=== PATIENT | female | born 1955 | race Caucasian/White ===

== ENCOUNTER 2016-07-26 08:31 | Inpatient (IN) | payer BC ==
[~2016-07-26] VITALS: Ht 167.6 cm; Wt 136.5 kg
[~2016-07-26 08:31] MED LIST: FERROUS SU325 MG/TAB PO; FOLIC ACID 40400 MCG PO; HCTZ 25MG25 MG PO; HEPARIN LOCK FLU5 M1 IV; INDERAL LA 60MG60 M1 PO; LOVENOX 4040 MG/0.4 SQ; NORCO 325 MG-51 TAB PO; PRILOTC PO; VANCOCIN HCL1 GM IV; VITAMIN C BUFF500 MG PO
[2016-07-26 09:39] LABS: MEAN CELL VOLUME 89 fl (80.0-100.0); MEAN CORPUSCULAR HGB CONC 32 g/dl (33.0-37.0); MEAN PLATELET VOLUME 10.2 fl (7.4-10.4); PLATELET COUNT 334 K/mm3 (130-400); RED BLOOD COUNT 3.15 M/mm3 (4.10-5.30); REDCELL DISTRIBUTION WIDTH-CV 14.2 % (11.5-14.5)
[2016-07-26 09:46] LABS: ADD PATHOLOGY DIFF REVIEW NO; ADJUSTED CALCIUM 9.9 mg/dL (8.4-10.2); ALBUMIN 2.8 gm/dL (3.5-5.0); BILIRUBIN,TOTAL 0.8 mg/dL (0.0-1.0); CALCIUM 8.9 mg/dL (8.4-10.2); CREATININE, serum 3.52 mg/dL (0.52-1.25); HEMATOCRIT 28.1 % (37.0-47.0); MEAN CORPUSCULAR HEMOGLOBIN 29 pg (27.0-31.0); POTASSIUM 3.8 mmol/L (3.4-5.0); TOTAL PROTEIN 6.3 gm/dL (6.4-8.2); WHITE BLOOD COUNT 28.3 K/mm3 (4.8-10.8)
[2016-07-26 09:55] LABS: BAND 22 % (0-10); EOSINOPHIL 3 % (0-4); METAMYELOCYTE 1 % (0-0); NEUTROPHILS 62 % (42.0-75.2); PLATELET ESTIMATE NORMAL (NORMAL); TOTAL CELLS COUNTED 200
[2016-07-26 10:05] LABS: ERYTHROCYTE SEDIMENTATION RATE > 140 mm/hr (0-30)
[2016-07-26 10:14] LABS: C-REACTIVE PROTEIN 21.9 mg/dL (0.0-0.9)
[2016-07-26 11:54] VITALS: BP 144/69; PULSE 77; TEMP 98.1
[2016-07-26] MEDS ORDERED: LOVENOX 4040 MG/0.4 SQ (13:22)
[2016-07-26 16:06] LABS: PH 5 (5-8); URINE APPEARANCE Clear; URINE BACTERIA Rare /hpf; URINE BILIRUBIN Negative (NEGATIVE); URINE BLOOD Negative (NEGATIVE); URINE COLOR Straw; URINE GLUCOSE Negative (NEGATIVE); URINE KETONE Negative (NEGATIVE); URINE RBC 0-2 /hpf; URINE UROBILINOGEN Negative (NEGATIVE); URINE WBC 0-2 /hpf
[2016-07-26 16:07] VITALS: BP 136/58; PULSE 82; TEMP 98.2
[2016-07-26 19:45] VITALS: BP 129/58; PULSE 81; TEMP 100.5
[2016-07-26 23:26] VITALS: BP 107/57; PULSE 78; TEMP 98.5
[2016-07-27 04:17] VITALS: BP 114/66; PULSE 71; TEMP 98.8
[2016-07-27 07:19] VITALS: BP 130/74; PULSE 73; TEMP 97.9
[2016-07-27 08:27] LABS: MEAN CELL VOLUME 90 fl (80.0-100.0); MEAN CORPUSCULAR HGB CONC 32 g/dl (33.0-37.0); MEAN PLATELET VOLUME 9.9 fl (7.4-10.4); PLATELET COUNT 370 K/mm3 (130-400); REDCELL DISTRIBUTION WIDTH-CV 14.2 % (11.5-14.5)
[2016-07-27 08:29] LABS: ADD PATHOLOGY DIFF REVIEW NO; HEMATOCRIT 27.8 % (37.0-47.0); HEMOGLOBIN 8.9 g/dl (12.5-16.0); MEAN CORPUSCULAR HEMOGLOBIN 29 pg (27.0-31.0); WHITE BLOOD COUNT 25.4 K/mm3 (4.8-10.8)
[2016-07-27 08:42] LABS: CALCIUM 8.5 mg/dL (8.4-10.2); CREATININE, serum 3.63 mg/dL (0.52-1.25); POTASSIUM 3.9 mmol/L (3.4-5.0)
[2016-07-27 11:09] LABS: BASOPHIL 1 % (0-2); NEUTROPHILS 77 % (42.0-75.2)
[2016-07-27 11:10] LABS: BAND 16 % (0-10); TOTAL CELLS COUNTED 200
[2016-07-27 11:39] VITALS: BP 121/57; PULSE 70; TEMP 97.8
[2016-07-27 17:20] VITALS: BP 139/62; PULSE 76; TEMP 97.5
[2016-07-27 21:03] VITALS: BP 119/62; PULSE 71; TEMP 97.3
[2016-07-28 00:53] VITALS: BP 124/63; PULSE 74; TEMP 97.6
[2016-07-28 05:14] VITALS: BP 141/79; PULSE 77; TEMP 97.9
[2016-07-28 07:40] VITALS: BP 147/80; PULSE 81; TEMP 97.5
[2016-07-28 07:52] LABS: BASO # 0.1 (0.0-0.2); BASO % 0.3 % (0.0-2.0); EOS # 0.4 (0.0-0.7); EOS % 1.9 % (0-4.0); GRAN # 18.6 (1.4-6.5); GRAN % 81.9 % (42.2-75.2); LYMPH # 2.1 (1.2-3.4); LYMPH % 9.5 % (20.0-51.0); MEAN CELL VOLUME 90 fl (80.0-100.0); MEAN CORPUSCULAR HGB CONC 32 g/dl (33.0-37.0); MONO # 1.2 (0.1-0.6); MONO % 5.3 % (1.7-9.3); PLATELET COUNT 413 K/mm3 (130-400); RED BLOOD COUNT 2.81 M/mm3 (4.10-5.30); REDCELL DISTRIBUTION WIDTH-CV 14.3 % (11.5-14.5)
[2016-07-28 07:53] LABS: HEMATOCRIT 25.4 % (37.0-47.0); MEAN CORPUSCULAR HEMOGLOBIN 28 pg (27.0-31.0); WHITE BLOOD COUNT 22.6 K/mm3 (4.8-10.8)
[2016-07-28 08:08] LABS: CALCIUM 8.4 mg/dL (8.4-10.2); POTASSIUM 3.6 mmol/L (3.4-5.0)
[2016-07-28 08:36] LABS: CREATININE, serum 4.11 mg/dL (0.52-1.25)
[2016-07-28 11:34] VITALS: BP 142/76; PULSE 78; TEMP 97.5
[2016-07-28 15:36] VITALS: BP 132/61; PULSE 72; TEMP 97.7
[2016-07-28 19:42] VITALS: BP 102/68; BP 152/76; PULSE 81; PULSE 82; TEMP 98.7
[2016-07-29] VITALS (7 sets, daily range): BP systolic 117–172; BP diastolic 54–68; PULSE 73–94; TEMP 97.6–98.8
[2016-07-29 11:30] LABS: CALCIUM 8.3 mg/dL (8.4-10.2); CREATININE, serum 3.74 mg/dL (0.52-1.25); POTASSIUM 4.1 mmol/L (3.4-5.0)
[2016-07-30 04:16] VITALS: BP 124/58; PULSE 81; TEMP 98.3
[2016-07-30 07:21] LABS: CALCIUM 8.2 mg/dL (8.4-10.2); CREATININE, serum 3.6 mg/dL (0.52-1.25); POTASSIUM 3.7 mmol/L (3.4-5.0)
[2016-07-30 07:32] LABS: BASO % 0.2 % (0.0-2.0); EOS # 0.3 (0.0-0.7); EOS % 1.7 % (0-4.0); GRAN # 14.8 (1.4-6.5); GRAN % 82.3 % (42.2-75.2); LYMPH # 1.6 (1.2-3.4); LYMPH % 8.9 % (20.0-51.0); MEAN CELL VOLUME 90 fl (80.0-100.0); MEAN CORPUSCULAR HGB CONC 31 g/dl (33.0-37.0); MEAN PLATELET VOLUME 9.9 fl (7.4-10.4); MONO % 5.7 % (1.7-9.3); PLATELET COUNT 444 K/mm3 (130-400); RED BLOOD COUNT 2.71 M/mm3 (4.10-5.30); REDCELL DISTRIBUTION WIDTH-CV 14.6 % (11.5-14.5); WHITE BLOOD COUNT 17.9 K/mm3 (4.8-10.8)
[2016-07-30 07:33] VITALS: BP 123/61; PULSE 78; TEMP 99
[2016-07-30 07:35] LABS: HEMATOCRIT 24.5 % (37.0-47.0); HEMOGLOBIN 7.7 g/dl (12.5-16.0); MEAN CORPUSCULAR HEMOGLOBIN 28 pg (27.0-31.0)
[2016-07-30 12:07] VITALS: BP 137/56; PULSE 88; TEMP 98
[2016-07-30 17:01] VITALS: BP 134/65; PULSE 83; TEMP 98.3
[2016-07-30 19:26] VITALS: BP 131/69; PULSE 89; TEMP 98.5
[2016-07-30 23:27] VITALS: BP 122/67; PULSE 90; TEMP 98.6
[2016-07-31 03:27] VITALS: BP 154/80; PULSE 93; TEMP 98.4
[2016-07-31 06:51] LABS: MEAN CELL VOLUME 90 fl (80.0-100.0); MEAN CORPUSCULAR HGB CONC 32 g/dl (33.0-37.0); MEAN PLATELET VOLUME 9.4 fl (7.4-10.4); PLATELET COUNT 457 K/mm3 (130-400); RED BLOOD COUNT 2.59 M/mm3 (4.10-5.30); REDCELL DISTRIBUTION WIDTH-CV 14.4 % (11.5-14.5); WHITE BLOOD COUNT 15.2 K/mm3 (4.8-10.8)
[2016-07-31 07:02] LABS: ALBUMIN 2.5 gm/dL (3.5-5.0); CALCIUM 8.2 mg/dL (8.4-10.2); CREATININE, serum 3.08 mg/dL (0.52-1.25); PHOSPHOROUS 6.1 mg/dL (2.5-4.5); POTASSIUM 3.7 mmol/L (3.4-5.0)
[2016-07-31 07:12] LABS: HEMATOCRIT 23.2 % (37.0-47.0); HEMOGLOBIN 7.3 g/dl (12.5-16.0); MEAN CORPUSCULAR HEMOGLOBIN 28 pg (27.0-31.0)
[2016-07-31 07:21] LABS: ADD PATHOLOGY DIFF REVIEW YES; BAND 13 % (0-10); EOSINOPHIL 2 % (0-4); MYELOCYTE 1 % (0-0); NEUTROPHILS 71 % (42.0-75.2); PLATELET ESTIMATE INCREASED (NORMAL); TOTAL CELLS COUNTED 100
[2016-07-31 07:58] VITALS: BP 147/67; PULSE 87; TEMP 100
[2016-07-31 12:01] VITALS: BP 135/63; PULSE 75; TEMP 98.1
[2016-07-31 17:42] VITALS: BP 149/74; PULSE 84; TEMP 98.2
[2016-07-31 19:47] VITALS: BP 131/64; PULSE 80; TEMP 98.3
[2016-07-31 23:39] VITALS: BP 148/71; PULSE 91; TEMP 99.6
[2016-08-01 03:31] VITALS: BP 135/72; PULSE 89; TEMP 100.3
[2016-08-01 07:11] LABS: BASO % 0.2 % (0.0-2.0); EOS # 0.3 (0.0-0.7); EOS % 2.3 % (0-4.0); GRAN # 11.3 (1.4-6.5); LYMPH # 1.5 (1.2-3.4); LYMPH % 10.9 % (20.0-51.0); MEAN CELL VOLUME 90 fl (80.0-100.0); MEAN CORPUSCULAR HGB CONC 32 g/dl (33.0-37.0); MEAN PLATELET VOLUME 9.5 fl (7.4-10.4); MONO # 0.8 (0.1-0.6); MONO % 5.9 % (1.7-9.3); PLATELET COUNT 471 K/mm3 (130-400); RED BLOOD COUNT 2.54 M/mm3 (4.10-5.30); REDCELL DISTRIBUTION WIDTH-CV 14.5 % (11.5-14.5); WHITE BLOOD COUNT 14.2 K/mm3 (4.8-10.8)
[2016-08-01 07:24] LABS: ALBUMIN 2.6 gm/dL (3.5-5.0); CALCIUM 8.5 mg/dL (8.4-10.2); CREATININE, serum 2.69 mg/dL (0.52-1.25); PHOSPHOROUS 5.6 mg/dL (2.5-4.5); POTASSIUM 3.5 mmol/L (3.4-5.0)
[2016-08-01 07:25] LABS: HEMATOCRIT 22.9 % (37.0-47.0); HEMOGLOBIN 7.3 g/dl (12.5-16.0); MEAN CORPUSCULAR HEMOGLOBIN 29 pg (27.0-31.0)
[2016-08-01 07:43] VITALS: BP 141/66; PULSE 78; TEMP 98.8
[2016-08-01 11:06] VITALS: BP 130/58; PULSE 80; TEMP 98.7
[2016-08-01 16:43] VITALS: BP 132/67; PULSE 82; TEMP 98.9
[2016-08-01] MEDS ORDERED: AZTREONAM1 GM IV (17:22)
[2016-08-01] MEDS ORDERED: ZYVOX PREM600 MG/300 IV (17:23)
[2016-08-01] MEDS ORDERED: HEPARIN LOCK FLU5 M1 IV (17:24)
[2016-08-01] MEDS ORDERED: NORCO 325 MG-51 TAB PO (17:25)
[2016-08-01] MEDS ORDERED: SODIUM BICARBO650 MG PO (17:31)
[2016-08-01 19:49] VITALS: BP 130/67; PULSE 73; TEMP 97.7
[2016-08-02 00:21] VITALS: BP 139/64; PULSE 85; TEMP 98.1
[2016-08-02 04:01] VITALS: BP 144/69; PULSE 81; TEMP 98.1
[2016-08-02 06:53] LABS: BASO # 0.1 (0.0-0.2); BASO % 0.4 % (0.0-2.0); EOS # 0.4 (0.0-0.7); EOS % 3.4 % (0-4.0); GRAN # 8.6 (1.4-6.5); GRAN % 74.5 % (42.2-75.2); LYMPH # 1.6 (1.2-3.4); LYMPH % 14.1 % (20.0-51.0); MEAN CELL VOLUME 91 fl (80.0-100.0); MEAN CORPUSCULAR HGB CONC 32 g/dl (33.0-37.0); MEAN PLATELET VOLUME 9.2 fl (7.4-10.4); MONO # 0.8 (0.1-0.6); MONO % 6.6 % (1.7-9.3); PLATELET COUNT 456 K/mm3 (130-400); RED BLOOD COUNT 2.58 M/mm3 (4.10-5.30); REDCELL DISTRIBUTION WIDTH-CV 14.6 % (11.5-14.5); WHITE BLOOD COUNT 11.6 K/mm3 (4.8-10.8)
[2016-08-02 07:03] LABS: HEMATOCRIT 23.4 % (37.0-47.0); HEMOGLOBIN 7.4 g/dl (12.5-16.0); MEAN CORPUSCULAR HEMOGLOBIN 29 pg (27.0-31.0)
[2016-08-02 07:06] LABS: ALBUMIN 2.6 gm/dL (3.5-5.0); CALCIUM 8.6 mg/dL (8.4-10.2); CREATININE, serum 2.31 mg/dL (0.52-1.25); PHOSPHOROUS 5.5 mg/dL (2.5-4.5); POTASSIUM 3.6 mmol/L (3.4-5.0)
[2016-08-02 07:42] VITALS: BP 146/82; PULSE 76; TEMP 98.3
[2016-08-02 11:51] VITALS: BP 129/65; PULSE 72; TEMP 98.3
[2016-08-02 13:43] VITALS: BP 129/65; PULSE 72; TEMP 98.3
== END 2016-08-02 14:45 | DRG 602 ==
LOC: COL.ER 08:31 → MEDICAL 10:35
PROVIDERS: Emergency Medicine; Internal Medicine; Internal Medicine Nephrology; Nurse Practitioner Family; Physician Assistant
DX: L03.115 Cellulitis of right lower limb (principal); N17.0 Acute kidney failure with tubular necrosis; E87.1 Hypo-osmolality and hyponatremia; E87.2 Acidosis; J02.9 Acute pharyngitis, unspecified; D63.8 Anemia in other chronic diseases classified elsewhere; I10 Essential (primary) hypertension; F43.21 Adjustment disorder with depressed mood; Z96.653 Presence of artificial knee joint, bilateral
CPT/HCPCS: 90791-AI; 99222-AI; 99232-AI; 99239; J0881; J1200; J1644; J1940; J2020; J2185; J2270; J2930; J7030

== ENCOUNTER 2016-08-05 21:14 | Observation (INO) | payer BC ==
[~2016-08-05] VITALS: Ht 165.1 cm; Wt 129.6 kg
[~2016-08-05 21:14] MED LIST changes: -LASIX 20MG TABL20 MG PO; -ZYVOX 600MG600 MG PO
[2016-08-05 22:02] LABS: BASO # 0.1 (0.0-0.2); BASO % 0.5 % (0.0-2.0); EOS # 0.2 (0.0-0.7); EOS % 1.6 % (0-4.0); GRAN # 8.9 (1.4-6.5); GRAN % 77.1 % (42.2-75.2); HEMATOCRIT 23.4 % (37.0-47.0); HEMOGLOBIN 7.6 g/dl (12.5-16.0); LYMPH # 1.6 (1.2-3.4); LYMPH % 14.1 % (20.0-51.0); MEAN CELL VOLUME 88 fl (80.0-100.0); MEAN CORPUSCULAR HEMOGLOBIN 29 pg (27.0-31.0); MEAN CORPUSCULAR HGB CONC 33 g/dl (33.0-37.0); MEAN PLATELET VOLUME 8.7 fl (7.4-10.4); MONO # 0.7 (0.1-0.6); MONO % 6.3 % (1.7-9.3); PLATELET COUNT 331 K/mm3 (130-400); RED BLOOD COUNT 2.65 M/mm3 (4.10-5.30); REDCELL DISTRIBUTION WIDTH-CV 14.6 % (11.5-14.5); WHITE BLOOD COUNT 11.6 K/mm3 (4.8-10.8)
[2016-08-05 22:16] LABS: ALBUMIN 2.7 gm/dL (3.5-5.0); BILIRUBIN,TOTAL 0.5 mg/dL (0.0-1.0); C-REACTIVE PROTEIN 7.9 mg/dL (0.0-0.9); CREATININE, serum 1.44 mg/dL (0.52-1.25); POTASSIUM 3.2 mmol/L (3.4-5.0); TOTAL PROTEIN 6.3 gm/dL (6.4-8.2)
[2016-08-06 00:28] VITALS: BP 117/86; PULSE 84; TEMP 98.4
[2016-08-06 04:40] VITALS: BP 155/81; PULSE 81; TEMP 98.4
[2016-08-06 07:50] LABS: CALCIUM 8.1 mg/dL (8.4-10.2); CREATININE, serum 1.36 mg/dL (0.52-1.25); POTASSIUM 3.3 mmol/L (3.4-5.0)
[2016-08-06 09:04] VITALS: BP 145/73; PULSE 81; TEMP 98.7
[2016-08-06 10:37] LABS: MAGNESIUM 1.1 mg/dL (1.6-2.3)
[2016-08-06 11:51] VITALS: BP 143/67; PULSE 74; TEMP 98.1
[2016-08-06 15:59] VITALS: BP 139/72; PULSE 79; TEMP 98.2
[2016-08-06 20:43] VITALS: BP 139/66; PULSE 76; TEMP 98.3
[2016-08-07 00:44] VITALS: BP 142/75; PULSE 86; TEMP 99.5
[2016-08-07 04:58] VITALS: BP 134/66; PULSE 74; TEMP 98.5
[2016-08-07 07:44] LABS: BASO # 0.1 (0.0-0.2); BASO % 0.8 % (0.0-2.0); EOS # 0.3 (0.0-0.7); GRAN # 8.4 (1.4-6.5); LYMPH # 1.8 (1.2-3.4); LYMPH % 15.5 % (20.0-51.0); MEAN CELL VOLUME 89 fl (80.0-100.0); MEAN CORPUSCULAR HGB CONC 32 g/dl (33.0-37.0); MONO # 0.7 (0.1-0.6); MONO % 6.1 % (1.7-9.3); PLATELET COUNT 320 K/mm3 (130-400); RED BLOOD COUNT 2.63 M/mm3 (4.10-5.30); REDCELL DISTRIBUTION WIDTH-CV 14.6 % (11.5-14.5); WHITE BLOOD COUNT 11.3 K/mm3 (4.8-10.8)
[2016-08-07 07:56] LABS: HEMATOCRIT 23.4 % (37.0-47.0); HEMOGLOBIN 7.5 g/dl (12.5-16.0); MEAN CORPUSCULAR HEMOGLOBIN 29 pg (27.0-31.0)
[2016-08-07 07:57] LABS: CALCIUM 8.3 mg/dL (8.4-10.2); CREATININE, serum 1.26 mg/dL (0.52-1.25); MAGNESIUM 1.7 mg/dL (1.6-2.3); POTASSIUM 3.7 mmol/L (3.4-5.0)
[2016-08-07] MEDS ORDERED: NORCO 325 MG-51 TAB PO (08:24)
[2016-08-07] MEDS ORDERED: ZYVOX PREM600 MG/300 IV (08:24)
[2016-08-07] MEDS ORDERED: AZTREONAM1 GM IV (08:24)
[2016-08-07 09:16] VITALS: BP 142/65; PULSE 78; TEMP 98.1
[2016-08-07] MEDS ORDERED: LASIX 20MG TABL20 MG PO (10:03)
[2016-08-07] MEDS ORDERED: ZYVOX 600MG600 MG PO (10:27)
[2016-08-07 13:06] VITALS: BP 156/74; PULSE 78; TEMP 98.1
[2016-08-07 14:03] VITALS: BP 156/74; PULSE 78; TEMP 98.1
== END 2016-08-07 15:08 ==
LOC: COL.ER 21:14 → MEDICAL 22:21
PROVIDERS: Emergency Medicine; Internal Medicine; Physician Assistant
DX: L03.115 Cellulitis of right lower limb (principal); N17.9 Acute kidney failure, unspecified; I12.9 Hypertensive chronic kidney disease with stage 1 through stage 4 chronic kidney disease, or unspecified chronic kidney disease; N18.9 Chronic kidney disease, unspecified; E87.6 Hypokalemia; E83.42 Hypomagnesemia; Z79.899 Other long term (current) drug therapy; D64.9 Anemia, unspecified
CPT/HCPCS: 99222-AI; G0378; G8978-GP; G8979-GP; J1644; J1650; J2020; J3475; J3480

== ENCOUNTER → 2016-08-05 | Outpatient (CLI) | payer BC ==
[~2016-08-05] MED LIST changes: +AZTREONAM1 GM IV; +LASIX 20MG TABL20 MG PO; +SODIUM BICARBO650 MG PO; +ZYVOX 600MG600 MG PO; +ZYVOX PREM600 MG/300 IV
[2016-08-05 16:00] LABS: BASO # 0.1 (0.0-0.2); BASO % 0.7 % (0.0-2.0); EOS # 0.4 (0.0-0.7); GRAN # 8.6 (1.4-6.5); LYMPH # 1.8 (1.2-3.4); LYMPH % 15.8 % (20.0-51.0); MEAN CELL VOLUME 90 fl (80.0-100.0); MEAN CORPUSCULAR HGB CONC 33 g/dl (33.0-37.0); MEAN PLATELET VOLUME 9.4 fl (7.4-10.4); MONO # 0.7 (0.1-0.6); PLATELET COUNT 350 K/mm3 (130-400); RED BLOOD COUNT 2.49 M/mm3 (4.10-5.30); REDCELL DISTRIBUTION WIDTH-CV 14.8 % (11.5-14.5); WHITE BLOOD COUNT 11.6 K/mm3 (4.8-10.8)
[2016-08-05 17:10] LABS: HEMOGLOBIN 7.3 g/dl (12.5-16.0); MEAN CORPUSCULAR HEMOGLOBIN 29 pg (27.0-31.0)
[2016-08-05 17:11] LABS: HEMATOCRIT 22.4 % (37.0-47.0)
== END ==
LOC: COL.LAB 14:41 → ZLAB.STJ 14:41
PROVIDERS: Family Medicine
DX: N17.8 Other acute kidney failure (principal)

== ENCOUNTER → 2016-08-09 | Outpatient (CLI) | payer BC ==
[~2016-08-09] MED LIST changes: +LASIX 20MG TABL20 MG PO; +ZYVOX 600MG600 MG PO
[2016-08-09 09:30] LABS: BASO % 0.4 % (0.0-2.0); EOS # 0.3 (0.0-0.7); EOS % 2.8 % (0-4.0); GRAN # 6.8 (1.4-6.5); GRAN % 71.8 % (42.2-75.2); LYMPH # 1.7 (1.2-3.4); LYMPH % 17.9 % (20.0-51.0); MEAN CELL VOLUME 90 fl (80.0-100.0); MEAN CORPUSCULAR HGB CONC 31 g/dl (33.0-37.0); MEAN PLATELET VOLUME 9.2 fl (7.4-10.4); MONO # 0.7 (0.1-0.6); MONO % 6.9 % (1.7-9.3); PLATELET COUNT 258 K/mm3 (130-400); RED BLOOD COUNT 2.51 M/mm3 (4.10-5.30); REDCELL DISTRIBUTION WIDTH-CV 14.5 % (11.5-14.5); WHITE BLOOD COUNT 9.4 K/mm3 (4.8-10.8)
[2016-08-09 09:36] LABS: ADJUSTED CALCIUM 8.9 mg/dL (8.4-10.2); ALBUMIN 2.6 gm/dL (3.5-5.0); BILIRUBIN,TOTAL 0.6 mg/dL (0.0-1.0); CALCIUM 7.8 mg/dL (8.4-10.2); CREATININE, serum 1.09 mg/dL (0.52-1.25); POTASSIUM 3.8 mmol/L (3.4-5.0)
[2016-08-09 09:42] LABS: HEMATOCRIT 22.6 % (37.0-47.0); MEAN CORPUSCULAR HEMOGLOBIN 28 pg (27.0-31.0)
[2016-08-09 09:55] LABS: HEMOGLOBIN 7.1 g/dl (12.5-16.0)
== END ==
LOC: ZLAB.STJ 09:21
PROVIDERS: Nurse Practitioner
DX: N14.1 Nephropathy induced by other drugs, medicaments and biological substances (principal); T50.995A Adverse effect of other drugs, medicaments and biological substances, initial encounter; L03.115 Cellulitis of right lower limb

== ENCOUNTER → 2016-08-09 | Outpatient (CLI) | payer BC | LOC: WCC 09:20 | DX: S81.801A Unspecified open wound, right lower leg, initial encounter (principal); L03.115 Cellulitis of right lower limb | CPT/HCPCS: G0463 ==

== ENCOUNTER → 2016-08-12 | Outpatient (CLI) | payer BC | LOC: WCC 14:14 | DX: L03.115 Cellulitis of right lower limb (principal); I83.219 Varicose veins of right lower extremity with both ulcer of unspecified site and inflammation; E66.9 Obesity, unspecified | CPT/HCPCS: 13919; 13973; A6199; G0463 ==

== ENCOUNTER → 2016-08-13 | Outpatient (CLI) | payer BC ==
[2016-08-13 13:20] LABS: ADJUSTED CALCIUM 8.5 mg/dL (8.4-10.2); BASO % 0.4 % (0.0-2.0); BILIRUBIN,TOTAL 0.5 mg/dL (0.0-1.0); CALCIUM 7.7 mg/dL (8.4-10.2); CREATININE, serum 0.91 mg/dL (0.52-1.25); EOS # 0.4 (0.0-0.7); EOS % 5.4 % (0-4.0); GRAN # 4.4 (1.4-6.5); GRAN % 60.6 % (42.2-75.2); LYMPH # 1.7 (1.2-3.4); LYMPH % 23.6 % (20.0-51.0); MEAN CELL VOLUME 89 fl (80.0-100.0); MEAN CORPUSCULAR HGB CONC 32 g/dl (33.0-37.0); MEAN PLATELET VOLUME 10.1 fl (7.4-10.4); MONO # 0.7 (0.1-0.6); MONO % 9.7 % (1.7-9.3); PLATELET COUNT 226 K/mm3 (130-400); RED BLOOD COUNT 2.45 M/mm3 (4.10-5.30); REDCELL DISTRIBUTION WIDTH-CV 14.1 % (11.5-14.5); TOTAL PROTEIN 6.4 gm/dL (6.4-8.2); WHITE BLOOD COUNT 7.2 K/mm3 (4.8-10.8)
[2016-08-13 13:26] LABS: HEMATOCRIT 21.7 % (37.0-47.0); HEMOGLOBIN 6.9 g/dl (12.5-16.0); MEAN CORPUSCULAR HEMOGLOBIN 28 pg (27.0-31.0)
== END ==
LOC: ZCOL.LAB 12:41
PROVIDERS: Family Medicine
DX: D64.89 Other specified anemias (principal)

== ENCOUNTER → 2016-08-15 | Outpatient (REF) ==
[2016-08-15 09:38] LABS: BASO % 0.5 % (0.0-2.0); EOS # 0.3 (0.0-0.7); EOS % 3.5 % (0-4.0); GRAN # 5.3 (1.4-6.5); GRAN % 64.3 % (42.2-75.2); LYMPH # 1.8 (1.2-3.4); MEAN CELL VOLUME 88 fl (80.0-100.0); MEAN CORPUSCULAR HGB CONC 33 g/dl (33.0-37.0); MEAN PLATELET VOLUME 9.9 fl (7.4-10.4); MONO # 0.8 (0.1-0.6); MONO % 9.3 % (1.7-9.3); PLATELET COUNT 230 K/mm3 (130-400); RED BLOOD COUNT 2.51 M/mm3 (4.10-5.30); REDCELL DISTRIBUTION WIDTH-CV 13.7 % (11.5-14.5); WHITE BLOOD COUNT 8.3 K/mm3 (4.8-10.8)
[2016-08-15 09:50] LABS: ADJUSTED CALCIUM 8.7 mg/dL (8.4-10.2); BILIRUBIN,TOTAL 0.5 mg/dL (0.0-1.0); CALCIUM 7.9 mg/dL (8.4-10.2); CREATININE, serum 0.86 mg/dL (0.52-1.25); HEMATOCRIT 22.1 % (37.0-47.0); HEMOGLOBIN 7.2 g/dl (12.5-16.0); MEAN CORPUSCULAR HEMOGLOBIN 29 pg (27.0-31.0); POTASSIUM 3.6 mmol/L (3.4-5.0); TOTAL PROTEIN 6.1 gm/dL (6.4-8.2)
== END ==
LOC: ZLAB.STJ 09:33
PROVIDERS: Internal Medicine Infectious Disease
DX: Z01.89 Encounter for other specified special examinations (principal)

== ENCOUNTER → 2016-08-19 | Outpatient (CLI) | payer BC | LOC: WCC 11:42 | DX: I83.219 Varicose veins of right lower extremity with both ulcer of unspecified site and inflammation (principal); L03.115 Cellulitis of right lower limb | CPT/HCPCS: G0463 ==

== ENCOUNTER → 2016-08-26 | Outpatient (CLI) | payer BC | LOC: WCC 08:42 | DX: I87.8 Other specified disorders of veins (principal); L97.519 Non-pressure chronic ulcer of other part of right foot with unspecified severity; L03.115 Cellulitis of right lower limb; E66.9 Obesity, unspecified | CPT/HCPCS: 13919 ==

== ENCOUNTER → 2016-09-02 | Outpatient (CLI) | payer BC | LOC: WCC 10:19 | DX: L03.115 Cellulitis of right lower limb (principal); I87.8 Other specified disorders of veins; L97.819 Non-pressure chronic ulcer of other part of right lower leg with unspecified severity | CPT/HCPCS: 13919; 13973; A6199; G0463 ==

== ENCOUNTER → 2016-09-02 | Outpatient (CLI) | payer BC | LOC: ZCOL.LAB 14:26 | DX: L03.115 Cellulitis of right lower limb (principal) ==

== ENCOUNTER → 2016-09-09 | Outpatient (CLI) | payer BC | LOC: WCC 10:41 | DX: I87.8 Other specified disorders of veins (principal); L97.519 Non-pressure chronic ulcer of other part of right foot with unspecified severity; L03.115 Cellulitis of right lower limb | CPT/HCPCS: 27510; A6197; G0463 ==

== ENCOUNTER → 2016-09-16 | Outpatient (CLI) | payer BC | LOC: WCC 13:28 | DX: I87.8 Other specified disorders of veins (principal); L97.519 Non-pressure chronic ulcer of other part of right foot with unspecified severity | CPT/HCPCS: 17717; A6212; G0463 ==

== ENCOUNTER 2016-09-26 15:15 | Outpatient (RCR) | payer BC | END 2016-12-03 13:04 | disposition home or self-care (01) | LOC: WSPT 15:15 | DX: I83.218 Varicose veins of right lower extremity with both ulcer of other part of lower extremity and inflammation (principal); L97.212 Non-pressure chronic ulcer of right calf with fat layer exposed; L03.115 Cellulitis of right lower limb ==

== ENCOUNTER → 2016-10-30 | Outpatient (CLI) | payer BC | LOC: WCC 08:28 | DX: I87.2 Venous insufficiency (chronic) (peripheral) (principal); L97.819 Non-pressure chronic ulcer of other part of right lower leg with unspecified severity; L03.115 Cellulitis of right lower limb | CPT/HCPCS: 13919; 17717; 27517; A6207; A6212; G0463 ==

== ENCOUNTER → 2016-10-30 | Outpatient (CLI) | payer BC | LOC: ZCOL.LAB 14:15 | DX: L03.115 Cellulitis of right lower limb (principal); L98.491 Non-pressure chronic ulcer of skin of other sites limited to breakdown of skin; L97.212 Non-pressure chronic ulcer of right calf with fat layer exposed ==

== ENCOUNTER → 2016-11-07 | Outpatient (CLI) | payer BC | LOC: WCC 10:29 | DX: I83.218 Varicose veins of right lower extremity with both ulcer of other part of lower extremity and inflammation (principal); L97.819 Non-pressure chronic ulcer of other part of right lower leg with unspecified severity | CPT/HCPCS: 13919; 17717; 27517; A6207; A6212; G0463 ==

== ENCOUNTER → 2016-11-13 | Outpatient (CLI) | payer BC | LOC: WCC 10:05 | DX: I87.2 Venous insufficiency (chronic) (peripheral) (principal) | CPT/HCPCS: 13919; 27517; A6207; G0463 ==

== ENCOUNTER → 2016-11-20 | Outpatient (CLI) | payer BC | LOC: WCC 09:45 | DX: I83.218 Varicose veins of right lower extremity with both ulcer of other part of lower extremity and inflammation (principal) | CPT/HCPCS: 13919; 17717; 27517; A6207; A6212 ==

== ENCOUNTER → 2016-11-25 | Outpatient (CLI) | payer BC | LOC: WCC 11:28 | DX: I87.2 Venous insufficiency (chronic) (peripheral) (principal); L97.919 Non-pressure chronic ulcer of unspecified part of right lower leg with unspecified severity | CPT/HCPCS: 13919; G0463 ==

== ENCOUNTER → 2016-11-29 | Outpatient (CLI) | payer BC | LOC: WCC 10:54 | DX: L03.115 Cellulitis of right lower limb (principal); I87.2 Venous insufficiency (chronic) (peripheral); L97.919 Non-pressure chronic ulcer of unspecified part of right lower leg with unspecified severity; I89.0 Lymphedema, not elsewhere classified; E66.01 Morbid (severe) obesity due to excess calories | CPT/HCPCS: 13919; G0463 ==

== ENCOUNTER → 2016-11-29 | Outpatient (CLI) | payer BC | LOC: COL.VAS 08:50 | DX: I83.018 Varicose veins of right lower extremity with ulcer other part of lower leg (principal); L97.819 Non-pressure chronic ulcer of other part of right lower leg with unspecified severity; I87.2 Venous insufficiency (chronic) (peripheral) ==

== ENCOUNTER → 2016-12-04 | Outpatient (CLI) | payer BC | LOC: WCC 11:17 | DX: I87.2 Venous insufficiency (chronic) (peripheral) (principal); L97.919 Non-pressure chronic ulcer of unspecified part of right lower leg with unspecified severity | CPT/HCPCS: 13919; G0463 ==

== ENCOUNTER → 2017-09-11 | Outpatient (CLI) | payer BC | LOC: MC.RAD 16:11 | DX: Z12.31 Encounter for screening mammogram for malignant neoplasm of breast (principal) ==

== ENCOUNTER 2019-07-29 13:17 | Inpatient (IN) | payer BC ==
[~2019-07-29] VITALS: Ht 165.1 cm; Wt 103.3 kg
[2019-09-14] VITALS (10 sets, daily range): BP systolic 129–177; BP diastolic 63–84; PULSE 58–68; TEMP 97.9–98
[2019-09-14] MEDS ORDERED: PRINIVIL40 MG PO (07:49)
[2019-09-14] MEDS ORDERED: DITROPAN 5MG TAB5 MG PO (07:50)
[2019-09-14] MEDS ORDERED: PRINIVIL2.5 MG (07:51)
[2019-09-14] MEDS ORDERED: CONZIP300 MG PO (07:52)
[2019-09-14] MEDS ORDERED: CYMBALTA 30MG30 MG (07:56)
[2019-09-15] VITALS (8 sets, daily range): BP systolic 102–129; BP diastolic 36–63; PULSE 67–86; TEMP 97.9–99.1
[2019-09-15 07:54] LABS: HEMATOCRIT 29.5 % (37.0-47.0); HEMOGLOBIN 9.3 g/dl (12.5-16.0)
[2019-09-16 01:10] VITALS: BP 124/55; PULSE 72; TEMP 98
[2019-09-16 03:59] VITALS: BP 122/51; PULSE 74; TEMP 97.5
[2019-09-16] MEDS ORDERED: NORCO 325 MG-7.1 TAB PO (06:34)
[2019-09-16] MEDS ORDERED: ASPI325T6 PO (06:34)
[2019-09-16] MEDS ORDERED: ROXICODONE 55 MG/TAB PO (06:35)
[2019-09-16 07:34] VITALS: BP 167/75; PULSE 84; TEMP 98.2
[2019-09-16 12:44] VITALS: BP 108/42; PULSE 70; TEMP 98
== END 2019-09-16 15:45 | disposition home or self-care (01) | DRG 470 ==
LOC: JCC 09-14 07:00
PROVIDERS: ADMIT Orthopaedic Surgery
PROC: 0SR903Z Replacement of Right Hip Joint with Ceramic Synthetic Substitute, Open Approach (ICD-10-PCS; principal; 2019-09-14 11:45)
DX: M16.11 Unilateral primary osteoarthritis, right hip (principal); Z68.41 Body mass index [BMI] 40.0-44.9, adult; I10 Essential (primary) hypertension; G89.29 Other chronic pain; M54.9 Dorsalgia, unspecified; E66.01 Morbid (severe) obesity due to excess calories; F32.9 Major depressive disorder, single episode, unspecified; D64.9 Anemia, unspecified; K59.00 Constipation, unspecified
CPT/HCPCS: A4314; A9284; C1713; C1776; J0690; J1100; J1885; J2250; J2405; J2704; J2765; J3010; J3370; J7120

== ENCOUNTER → 2019-09-03 | Outpatient (CLI) | payer BC ==
[2019-09-03 12:28] LABS: HIV 1/2 Antibodies Non-Reactive; HIV-1p24 Antigen Non-Reactive
== END ==
LOC: COL.LAB 10:05
PROVIDERS: Orthopaedic Surgery
DX: Z01.812 Encounter for preprocedural laboratory examination (principal); M16.11 Unilateral primary osteoarthritis, right hip

== ENCOUNTER 2019-09-28 15:18 | Inpatient (IN) | payer BC ==
[~2019-09-28] VITALS: Ht 165.2 cm; Wt 103.4 kg
[~2019-09-28 15:18] MED LIST changes: +ASPI325T6 PO; +CONZIP300 MG PO; +CYMBALTA 30MG30 MG PO; +DITROPAN 5MG TAB5 MG PO; +NORCO 325 MG-7.1 TAB PO; +PRINIVIL2.5 MG; +PRINIVIL40 MG PO; +ROXICODONE 55 MG/TAB PO
[2019-12-15] VITALS (11 sets, daily range): BP systolic 111–177; BP diastolic 64–97; PULSE 75–102; TEMP 98–98.8
[2019-12-15] MEDS ORDERED: MYRBETR50MG PO (06:05)
--- NOTE | 2019-12-15 11:27 | NUR ---
PT TO ROOM 329 PER BED WITH REPORT FROM JAIMIE PROJECT ARCHIVIST @[id number]. VSS, DRESSING TO LEFT HIP CDI WITH AQUACEL OVER INCISION. PT DROWSEY BUT AROUSES AND ANSWERED APPROPRIATLEY. IV TO PUMP, TEDS AND SCDS BILATERALLY.
--- NOTE | 2019-12-15 21:26 | NUR ---
PT IN BED, IS DROWSY, ALERT AND ORIENTED X4. TAKES HS MEDS WITHOUT PROBLEM. HAS IVF INFUSING TO LEFT AC WITHOUT REDNESS OR SWELLING. HOGAN CATH TO BSD WITH YELLOW URINE. ASSISTED TO EDGE OF BED THEN PT AMBULATES TO DOORWAY AND BACK TO BED, STEADY GAIT WITH WALKER AND GAIT BELT AND 1 ASSIST. BOX LUNCH PROVIDED PT HASN'T EATEN TODAY.
--- NOTE | 2019-12-15 23:00 | NUR ---
PT MEDICATED WITH OXYCODONE 10MG PO FOR PAIN 6/10 TO LEFT HIP.
[2019-12-16 00:10] VITALS: BP 144/64; PULSE 95; TEMP 99.8
[2019-12-16 04:12] VITALS: BP 127/60; PULSE 80; TEMP 98.2
--- NOTE | 2019-12-16 06:00 | NUR ---
PT DENIES NEEDS AT THIS TIME.
[2019-12-16 06:56] LABS: HEMATOCRIT 37.6 % (37.0-47.0); HEMOGLOBIN 11.9 g/dl (12.5-16.0)
[2019-12-16] MEDS ORDERED: ASPI325T6 PO (08:10)
[2019-12-16] MEDS ORDERED: ROXICODONE 55 MG/TAB PO (08:10)
[2019-12-16] MEDS ORDERED: NORCO 325 MG-7.1 TAB PO (08:10)
[2019-12-16 09:00] VITALS: BP 111/44; PULSE 71; TEMP 98.6
--- NOTE | 2019-12-16 10:00 | NUR ---
PT DOING WELL, UP WITH THERAPY PLAN ON DISCAHRGE LATER THIS AFTERNOON. DRESSING TO LEFT HIP CDI. EATING AND DRINKING.
--- NOTE | 2019-12-16 10:55 | NUR ---
First visit from the works manager. No needs right now.
--- NOTE | 2019-12-16 11:20 | NUR ---
HOGAN CATHETER DISCONTINUED. PT TOLERATED WELL.
--- NOTE | 2019-12-16 11:52 | NUR ---
ASH met with the patient to complete initial intake. The patient lives alone in [place]. The patient has plenty of support through her son and [id number]. The patient has a walker and cane. The patient is independent with ADLs. The patient's PCP is Dr. Chhaya Mendez and receives medications from [facility]. The patient has advanced directives in the EMR. The patient plans to return home at discharge with her son providing transportation. The patient will be going to outpatient PT at [facility] [place]. There are no additional needs at this time.
[2019-12-16 12:11] VITALS: BP 100/48; PULSE 71; TEMP 98.2
--- NOTE | 2019-12-16 15:00 | NUR ---
PATIENT DOING WELL. DISCHARGE INSTRUCTIONS REVIEWED WITH PATIENT. QUESTIONS ANSWERED,
== END 2019-12-16 15:02 | disposition home or self-care (01) | DRG 470 ==
LOC: JCC 11-23 10:30
PROVIDERS: ADMIT Orthopaedic Surgery
PROC: 0SRB04A Replacement of Left Hip Joint with Ceramic on Polyethylene Synthetic Substitute, Uncemented, Open Approach (ICD-10-PCS; principal; 2019-12-15 07:30)
DX: M16.12 Unilateral primary osteoarthritis, left hip (principal); Z68.41 Body mass index [BMI] 40.0-44.9, adult; E66.01 Morbid (severe) obesity due to excess calories; Z88.8 Allergy status to other drugs, medicaments and biological substances; Z91.048 Other nonmedicinal substance allergy status; I10 Essential (primary) hypertension; K21.9 Gastro-esophageal reflux disease without esophagitis; F32.9 Major depressive disorder, single episode, unspecified
CPT/HCPCS: A4314; A9284; C1713; C1776; J0690; J2250; J2405; J2704; J2795; J7120

== ENCOUNTER 2020-10-04 09:44 | Day surgery (SDC) | payer BC ==
[2005-03-21 14:42] VITALS: BP 121/76
[2020-10-04] VITALS (11 sets, daily range): BP systolic 118–144; BP diastolic 72–85; PULSE 60–69; TEMP 98.2
[~2020-10-04] VITALS: Ht 165.1 cm; Wt 113.7 kg
[~2020-10-04 09:44] MED LIST changes: +MYRBETR50MG PO
[2020-10-04] MEDS ORDERED: XELPROS2.5 ML OP (10:25)
[2020-10-04] MEDS ORDERED: HCTZ 25MG TAB25 MG PO (10:26)
[2020-10-04] MEDS ORDERED: IMDUR 30MG30 MG/TAB PO (10:27)
[2020-10-04] MEDS ORDERED: IRON TABLETS325 MG PO (10:28)
[2020-10-04] MEDS ORDERED: MUCINEX 60600 MG/TA1 PO (10:28)
[2020-10-04] MEDS ORDERED: MASON NATURAL2000 IU PO (10:29)
[2020-10-04] MEDS ORDERED: ALEVE 220MG220 MG PO (10:29)
[2020-10-04] MEDS ORDERED: TYLENOL 500MG500 MG PO (10:29)
[2020-10-04] MEDS ORDERED: ADVIL200 MG PO (10:30)
[2020-10-04 10:45] LABS: HEMATOCRIT 40.2 % (37.0-47.0); MEAN CELL VOLUME 93 fl (80.0-100.0); MEAN CORPUSCULAR HEMOGLOBIN 30 pg (27.0-31.0); MEAN CORPUSCULAR HGB CONC 32 g/dl (33.0-37.0); MEAN PLATELET VOLUME 9.9 fl (7.4-10.4); PLATELET COUNT 236 K/mm3 (130-400); RED BLOOD COUNT 4.32 M/mm3 (4.10-5.30); REDCELL DISTRIBUTION WIDTH-CV 13.2 % (11.5-14.5)
[2020-10-04 10:52] LABS: PROTHROMBIN TIME 10.9 SECONDS (9.7-12.8)
[2020-10-04 10:55] LABS: PARTIAL THROMBOPLASTIN TIME 29.8 SECONDS (26.0-37.0)
[2020-10-04 11:00] LABS: CALCIUM 9.7 mg/dL (8.4-10.2); CREATININE, serum 0.89 (0.52-1.25); POTASSIUM 4.1 mmol/L (3.4-5.0)
== END 2020-10-04 16:25 | disposition home or self-care (01) ==
LOC: COL.CAR
PROVIDERS: Internal Medicine Cardiovascular Disease
DX: I20.0 Unstable angina (principal); I10 Essential (primary) hypertension; K21.9 Gastro-esophageal reflux disease without esophagitis; I49.3 Ventricular premature depolarization; R60.0 Localized edema; M19.90 Unspecified osteoarthritis, unspecified site; Z96.643 Presence of artificial hip joint, bilateral; Z91.040 Latex allergy status; Z79.899 Other long term (current) drug therapy
CPT/HCPCS: C1769; J1644; J2250; J3010

== ENCOUNTER → 2021-04-19 | Outpatient (CLI) | payer BC ==
[~2021-04-19] MED LIST changes: +ADVIL200 MG PO; +ALEVE 220MG220 MG PO; +HCTZ 25MG TAB25 MG PO; +IMDUR 30MG30 MG/TAB PO; +IRON TABLETS325 MG PO; +MASON NATURAL2000 IU PO; +MUCINEX 60600 MG/TA1 PO; +TYLENOL 500MG500 MG PO; +XELPROS2.5 ML OP
== END ==
LOC: MC.RAD 14:23
DX: Z12.31 Encounter for screening mammogram for malignant neoplasm of breast (principal)

== ENCOUNTER → 2023-12-01 | Outpatient (CLI) | payer MEDICARE ==
[~2023-12-01] MED LIST changes: +ASPIRIN E.C. 8181 MG PO; +BIOTIN10000 MCG PO; +IBU400 MG PO; -INDERAL LA 60MG60 M1 PO; +INDERAL LA120 MG PO; +IRON BISGLYCINA28 MG PO; +PRILOTC; +REVIA 50MG TABL50 MG PO; +VITAMIN D31000 IU PO; +WELLBUTRIN XL150 MG PO; +XALATAN EYE DROPS OU; -XELPROS2.5 ML OP
== END ==
LOC: MC.RAD 12:50
DX: D05.12 Intraductal carcinoma in situ of left breast (principal)
CPT/HCPCS: A4648